=== PATIENT | male | born 1960 | race Caucasian/White ===

== ENCOUNTER 2019-03-30 22:49 | Emergency (ER) | payer SELFPAY ==
[~2019-03-30] VITALS: Ht 175.3 cm; Wt 100.7 kg
[2019-03-30 23:17] VITALS: BP 141/95; Ht 175.3 cm; Wt 100.7 kg
== END 2019-03-31 00:05 | disposition home or self-care (01) ==
LOC: ED 22:49
DX: S30.0XXA Contusion of lower back and pelvis, initial encounter (principal); S30.1XXA Contusion of abdominal wall, initial encounter; S90.121A Contusion of right lesser toe(s) without damage to nail, initial encounter; R60.0 Localized edema; W18.39XA Other fall on same level, initial encounter; Y93.89 Activity, other specified; Y92.89 Other specified places as the place of occurrence of the external cause; Y99.8 Other external cause status
CPT/HCPCS: 90715